=== PATIENT | female | born 1985 | race Caucasian/White ===

== ENCOUNTER → 2021-06-30 20:24 | Observation (INO) ==
[2021-06-30 17:12] LABS: Basophils % 0.2 %; Eosinophils % 0.3 %; Hematocrit 31.5 % (35.3-44.9); Hemoglobin 10.7 g/dL (11.5-15.4); Immature Granulocytes % 0.5 % (0-4); Lymphocytes # 1.5 K/mcL (0.6-4.6); Lymphocytes % 14.3 %; Mean Corpuscular Hemoglobin 30.7 pg (28.0-33.3); Mean Corpuscular Volume 90.3 fL (83.0-100.0); Mean Platelet Volume 9.2 fL (9.4-12.4); Monocytes # 0.8 K/mcL (0.0-1.3); Monocytes % 7.7 %; Platelet Count 188 K/mcL (140-400); Red Blood Count 3.49 M/mcL (3.82-4.97); Red Cell Distribution Width 12.1 % (11.5-14.5); White Blood Count 10.4 K/mcL (4.3-11.1)
[2021-06-30 17:16] LABS: Amorphous Sediment,Urine Few per hpf (None-Few); Bacteria,Urine Few per hpf (None-Few); Bilirubin,Urine Negative (Negative); Blood,Urine Negative (Negative); Calcium Oxalate Crystals,Urine Present per hpf; Clarity,Urine Turbid (Clear); Color,Urine Yellow (Yellow); Glucose,Urine (UA) Normal (Normal); Ketones,Urine Negative (Negative); Leukocyte Esterase,Urine Negative (Negative); Mucus,Urine Few per lpf (None-Few); Nitrite,Urine Negative (Negative); PH,Urine 6.5 pH Units (5.0-8.0); Protein,Urine 30 mg/dL (Neg-Trace); Squamous Epithelial Cell,Urine Moderate per hpf (None-Few); Urobilinogen,Urine Normal (Normal); WBC,Urine 0-3 per hpf (0-3)
[2021-06-30 17:27] LABS: Alanine Aminotransferase 9 Units/L (7-52); Aspartate Amino Transferase 13 Units/L (13-39); BUN/Creatinine Ratio 14 (6-26); Blood Urea Nitrogen 7 mg/dL (6-20); Lactate Dehydrogenase 173 Units/L (140-271); Uric Acid 3.9 mg/dL (2.3-7.6); eGFR For African Americans > 60 (> 60); eGFR For Non-African Americans > 60 (> 60)
[2021-06-30 18:03] LABS: Protein/Creatinine Ratio,Urine 0.32 mg/mg (0.00-0.20)
[~2021-06-30 20:24] MED LIST: Betamethasone Acet/SodPhos 30 MG/5 ML VIAL IM SCH
== END | disposition home or self-care (01) ==
LOC: 1NENULAB
PROVIDERS: ADMIT Obstetrics & Gynecology; ATTEND Obstetrics & Gynecology

== ENCOUNTER 2021-07-04 11:51 | Observation (INO) | END 2021-07-04 15:24 | disposition home or self-care (01) | LOC: 1NENULAB | PROVIDERS: ADMIT Student in an Organized Health Care Education/Training Program; ATTEND Student in an Organized Health Care Education/Training Program ==

== ENCOUNTER → 2021-07-24 15:05 | Observation (INO) ==
[2021-07-24 12:58] LABS: Basophils % 0.2 %; Eosinophils % 0.4 %; Hematocrit 32.4 % (35.3-44.9); Hemoglobin 10.8 g/dL (11.5-15.4); Immature Granulocytes % 0.5 % (0-4); Lymphocytes # 1.4 K/mcL (0.6-4.6); Lymphocytes % 16.5 %; Mean Corpuscular HGB Conc 33.3 g/dL (31.6-35.5); Mean Corpuscular Hemoglobin 30.7 pg (28.0-33.3); Mean Platelet Volume 9.5 fL (9.4-12.4); Monocytes # 0.6 K/mcL (0.0-1.3); Monocytes % 6.9 %; Neutrophils # 6.5 K/mcL (1.6-8.9); Platelet Count 185 K/mcL (140-400); Red Blood Count 3.52 M/mcL (3.82-4.97); Red Cell Distribution Width 12.5 % (11.5-14.5); Segmented Neutrophils % 75.5 %; White Blood Count 8.6 K/mcL (4.3-11.1)
[2021-07-24 13:19] LABS: Protein/Creatinine Ratio,Urine 0.2 mg/mg (0.00-0.20)
[2021-07-24 13:25] LABS: Alanine Aminotransferase 10 Units/L (7-52); Aspartate Amino Transferase 19 Units/L (13-39); BUN/Creatinine Ratio 14 (6-26); Blood Urea Nitrogen 8 mg/dL (6-20); Lactate Dehydrogenase 174 Units/L (140-271); Uric Acid 5.4 mg/dL (2.3-7.6); eGFR For African Americans > 60 (> 60); eGFR For Non-African Americans > 60 (> 60)
== END | disposition home or self-care (01) ==
LOC: 1NENULAB
PROVIDERS: ADMIT Student in an Organized Health Care Education/Training Program; ATTEND Student in an Organized Health Care Education/Training Program

== ENCOUNTER 2021-07-26 06:06 | Inpatient (IN) ==
[2021-07-26] MEDS ORDERED: Famotidine 20 MG/2 ML VIAL IVP PRN (06:27)
[2021-07-26] MEDS ORDERED: Metoclopramide 10 MG/2 ML VIAL IVP PRN (06:27)
[2021-07-26] MEDS ORDERED: Ondansetron 4 MG/2 ML VIAL IVP PRN (06:27)
[2021-07-26] MEDS ORDERED: Naloxone 0.4 MG/ML INJ IVP PRN (06:27)
[2021-07-26] MEDS ORDERED: Azithromycin 500 MG in 0.9 % Sodium Chloride 250 ML IVPB PRN (06:27)
[2021-07-26] MEDS ORDERED: *HR* Nalbuphine 10 MG/ML AMPUL IV PRN (06:27)
[2021-07-26] MEDS ORDERED: *HR* FentaNYL (PF) 100 MCG/2 ML VIAL IVP PRN (06:27)
[2021-07-26 06:59] LABS: Basophils % 0.2 %; Eosinophils # 0.1 K/mcL (0.0-0.6); Eosinophils % 0.6 %; Hematocrit 32.2 % (35.3-44.9); Hemoglobin 10.7 g/dL (11.5-15.4); Immature Granulocytes % 0.4 % (0-4); Lymphocytes # 1.9 K/mcL (0.6-4.6); Lymphocytes % 22.7 %; Mean Corpuscular HGB Conc 33.2 g/dL (31.6-35.5); Mean Corpuscular Hemoglobin 30.7 pg (28.0-33.3); Mean Corpuscular Volume 92.3 fL (83.0-100.0); Mean Platelet Volume 9.7 fL (9.4-12.4); Monocytes # 0.6 K/mcL (0.0-1.3); Monocytes % 6.5 %; Neutrophils # 5.9 K/mcL (1.6-8.9); Platelet Count 173 K/mcL (140-400); Red Blood Count 3.49 M/mcL (3.82-4.97); Red Cell Distribution Width 12.5 % (11.5-14.5); Segmented Neutrophils % 69.6 %; White Blood Count 8.5 K/mcL (4.3-11.1)
[2021-07-26 07:52] LABS: Influenza A PCR Negative (Negative); Influenza B PCR Negative (Negative); Resp. Syncytial Virus PCR Negative (Negative)
[2021-07-26 07:54] LABS: SARS-CoV-2 by PCR (In House) Positive (Negative)
[2021-07-26] MEDS ORDERED: EPHEDrine 50 MG/ML VIAL IVP PRN (08:37)
[2021-07-26] MEDS ORDERED: *HR* FentaNYL (PF) 100 MCG/2 ML VIAL EP ONE (08:37)
[2021-07-26] MEDS ORDERED: Ropivacaine/PF 0.2% 20 ML VIAL EP ONE (08:37)
[2021-07-26 09:08] LABS: Alanine Aminotransferase 12 Units/L (7-52); Aspartate Amino Transferase 24 Units/L (13-39); Blood Urea Nitrogen 11 mg/dL (6-20); Lactate Dehydrogenase 168 Units/L (140-271)
[2021-07-26] MEDS: miSOPROStoL 25 MCG TABLET PO PRN ×2 (09:22→13:35)
[2021-07-26] MEDS: Ringers Solution, Lactated 1,000 ML IVC SCH ×3 (09:49→21:12)
[2021-07-26 10:34] LABS: Amphetamine Screen,Urine Negative ng/mL (Cutoff=1000); Barbiturate Screen,Urine Negative ng/mL (Cutoff=200); Benzodiazepines Screen,Urine Negative ng/mL (Cutoff=200); Cannabinoid Screen,Urine Negative ng/mL (Cutoff = 50); Cocaine Screen,Urine Negative ng/mL (Cutoff= 300); Opiate Screen,Urine Negative ng/mL (Cutoff=300); Phencyclidine Screen,Urine Negative ng/mL (Cutoff=25)
[2021-07-26 10:35] LABS: BUN/Creatinine Ratio 18 (6-26); eGFR For African Americans > 60 (> 60); eGFR For Non-African Americans > 60 (> 60)
[2021-07-26 10:48] LABS: Creatinine,Urine 137 mg/dL; Protein/Creatinine Ratio,Urine 0.24 mg/mg (0.00-0.20)
[2021-07-26] MEDS: Epidural Premix (fent/bupiv) 110 ML EP SCH (18:20)
[2021-07-26] MEDS ORDERED: Oxytocin 20 units/ LR 1000 mL 20 UNIT/1,000 ML BAG IVC SCH (18:30)
[2021-07-27] MEDS: Epidural Premix (fent/bupiv) 110 ML EP SCH ×3 (00:23→14:35)
[2021-07-27] MEDS: Ringers Solution, Lactated 1,000 ML IVC SCH (07:27)
[2021-07-27] MEDS ORDERED: Venlafaxine XR (24 HR) 75 MG CAP.ER.24H PO SCH (09:00)
[2021-07-27 11:11] LABS: Uric Acid 5.3 mg/dL (2.3-7.6)
[2021-07-27] MEDS ORDERED: Lidocaine 1% 20 ML MDV ONE (17:48)
[2021-07-27] MEDS ORDERED: miSOPROStoL 100 MCG TABLET ONE (18:00)
[2021-07-27] MEDS ORDERED: Lidocaine 1% 20 ML MDV INFILT PRN (18:01)
[2021-07-27] MEDS ORDERED: Benzocaine/Menthol 56 GM AEROSOL SPRAY TP PRN (20:50)
[2021-07-27] MEDS ORDERED: Oxytocin 20 units/ LR 1000 mL 20 UNIT/1,000 ML BAG IVC ONE (20:50)
[2021-07-27] MEDS ORDERED: Ondansetron ODT 4 MG TAB.RAPDIS SL PRN (20:50)
[2021-07-27] MEDS ORDERED: Oxytocin 20 units/ LR 1000 mL 20 UNIT/1,000 ML BAG IVC SCH (20:50)
[2021-07-27] MEDS ORDERED: Lanolin 7 G OINT...G. TP PRN (20:50)
[2021-07-27] MEDS ORDERED: Rho Immune Globulin 1,500 UNIT SYRINGE IM PRN (20:50)
[2021-07-27] MEDS ORDERED: Measles/Mumps/Rubella Vacc 0.5 ML VIAL SQ PRN (20:50)
[2021-07-27] MEDS: Ibuprofen 600 MG TABLET PO SCH (21:38)
[2021-07-27] MEDS: Acetaminophen 325 MG TABLET PO SCH (21:39)
[2021-07-28 05:16] LABS: Basophils % 0.2 %; Eosinophils % 0.2 %; Hematocrit 28.8 % (35.3-44.9); Hemoglobin 9.7 g/dL (11.5-15.4); Immature Granulocytes % 0.5 % (0-4); Lymphocytes # 2.1 K/mcL (0.6-4.6); Lymphocytes % 12.6 %; Mean Corpuscular HGB Conc 33.7 g/dL (31.6-35.5); Mean Corpuscular Hemoglobin 30.5 pg (28.0-33.3); Mean Corpuscular Volume 90.6 fL (83.0-100.0); Mean Platelet Volume 9.4 fL (9.4-12.4); Monocytes # 1.2 K/mcL (0.0-1.3); Monocytes % 7.3 %; Platelet Count 165 K/mcL (140-400); Red Blood Count 3.18 M/mcL (3.82-4.97); Red Cell Distribution Width 12.3 % (11.5-14.5); Segmented Neutrophils % 79.2 %
[2021-07-28 05:17] LABS: Neutrophils # 13.5 K/mcL (1.6-8.9)
[2021-07-28] MEDS: Ibuprofen 600 MG TABLET PO SCH ×3 (06:58→22:46)
[2021-07-28] MEDS: Acetaminophen 325 MG TABLET PO SCH ×3 (06:58→22:46)
[2021-07-28] MEDS: Prenatal Vit/FA 1 EACH TABLET PO SCH (08:18)
[2021-07-28] MEDS: Venlafaxine XR (24 HR) 75 MG CAP.ER.24H PO SCH (12:14)
[2021-07-28] MEDS: NIFEdipine XL (24 HR) 30 MG TAB.ER.24 PO SCH (21:45)
[2021-07-29] MEDS: Ibuprofen 600 MG TABLET PO SCH ×2 (04:55→09:17)
[2021-07-29] MEDS: Acetaminophen 325 MG TABLET PO SCH (04:55)
[2021-07-29 06:55] VITALS: TEMP 97.7; O2SAT 97
[2021-07-29] MEDS: NIFEdipine XL (24 HR) 30 MG TAB.ER.24 PO SCH (09:16)
[2021-07-29] MEDS: Prenatal Vit/FA 1 EACH TABLET PO SCH (09:16)
[2021-07-29] MEDS: Venlafaxine XR (24 HR) 75 MG CAP.ER.24H PO SCH (09:18)
[2021-07-29 11:39] VITALS: BP 121/82; PULSE 108
== END 2021-07-29 14:41 | disposition home or self-care (01) | DRG 805 ==
LOC: 1NENULAB 06:06 → 1NENUOBS 07-27 20:16
PROVIDERS: ADMIT Obstetrics & Gynecology; ATTEND Obstetrics & Gynecology